=== PATIENT | male | born 1960 | race Hispanic/Latino ===

== ENCOUNTER 2017-04-06 06:10 | Day surgery (SDC) | payer OTHER ==
[2017-03-22 07:54] VITALS: BMI 24.3
[2017-04-06] MEDS ORDERED: Propofol 10 mg/ml Inj (20 ML) ONE (07:53)
[2017-04-06] MEDS ORDERED: Midazolam 2 MG/2 ML VIAL ONE (07:54)
[2017-04-06] MEDS ORDERED: cefTRIAXone (Rocephin) 1 gm Inj ONE (08:07)
[2017-04-06] MEDS ORDERED: Morphine 2 mg/ml ISec IVP PRN (08:13)
[2017-04-06] MEDS ORDERED: Lactated Ringer's 1,000 ML IV SCH (08:15)
[2017-04-06] MEDS ORDERED: ePHEDrine 50 mg/ml Inj ONE (08:25)
[2017-04-06] MEDS ORDERED: Bacitracin Ointment 30 GM TUBE ONE (09:04)
[2017-04-06] MEDS ORDERED: Oxycodone/Acetaminophen 5/325 mg Tab ONE (09:46)
[2017-04-06] MEDS ORDERED: Oxycodone/Acetaminophen 5/325 mg Tab PO PRN (09:51)
[2017-04-06 10:11] VITALS: RESP 20; TEMP 98
[2017-04-06 10:42] VITALS: BP 103/54; PULSE 46; O2SAT 100
--- NOTE | 2017-04-06 12:09 | OP ---
PROCEDURE DATE: 04/06/2017 PREOPERATIVE DIAGNOSIS: Left spermatocele. POSTOPERATIVE DIAGNOSIS: Left spermatocele. PROCEDURE: Left spermatocelectomy. SURGEON: Abelino Kwan MD TYPE OF ANESTHESIA: LMA. DESCRIPTION OF OPERATION: After adequate LMA anesthesia was given, the patient was placed supine, prepped and draped in the usual manner. An incision was made over the left hemiscrotum, carried down through the scrotal layers opening the tunica vaginalis. The testicle was extruded out of the opening along with the cord. There was large left spermatocele, about one-half times the size of the testicle. The spermatocele was carefully dissected off of the cord. When removed, the blood vessels to the cord, vas deferens were all intact with good color to the testicle. Any oozing vessels were clamped and tied with 4-0 chromic ties or with 4-0 chromic suture. The area was irrigated. There was no evidence of any bleeding whatsoever. The testicle was put back into left hemiscrotum. A quarter-inch Keyonna drain was brought out through a lower stab wound. Sponge and instruments were correct x2. The incision was then closed with a running locking 3-0 chromic for the cremasteric muscles and interrupted 3-0 chromic on the skin. Bacitracin was applied to the incision. A Kerlix pressure dressing with a jog strap was applied. He patient was awakened and brought to the recovery room in good condition. Abelino Kwan MD
== END 2017-04-06 11:00 | disposition home or self-care (01) ==
LOC: SDS 06:10
PROVIDERS: ATTEND Urology
DX: N43.40 Spermatocele of epididymis, unspecified (principal); I10 Essential (primary) hypertension; I73.9 Peripheral vascular disease, unspecified; E07.9 Disorder of thyroid, unspecified
CPT/HCPCS: 54840; 88304; J0696; J2001; J2250; J2270; J2405; J2704; J3010; J7120 ×2

== ENCOUNTER 2018-06-03 06:36 | Day surgery (SDC) | payer OTHER ==
[2017-12-31 10:35] VITALS: BMI 25.0
--- NOTE | 2018-05-31 22:30 | HP ---
REASON FOR ADMISSION: Left heart cath, possible angioplasty, abnormal stress test, rule out CAD. BRIEF CLINICAL HISTORY: This is a 57-year-old male with past medical history significant for hypertension, hyperlipidemia, coronary artery disease, history of a stent at [facility], history of peripheral arterial disease, history of a stent in the left external iliac, who is complaining of chest pain, shortness of breath and palpitation, so underwent a stress test and abnormal and patient was scheduled for elective cardiac cath and possible angioplasty. PAST MEDICAL HISTORY: Significant for hypertension, hyperlipidemia, coronary artery disease status post a stent in the past, history of peripheral arterial disease status post a stent in [place] in 2002. SOCIAL HISTORY: Denies smoking. Denies any history of alcohol abuse. CURRENT MEDICATIONS: The patient is taking multivitamin daily, lisinopril and hydrochlorothiazide combination 20/12.5 mg daily, levothyroxine 25 mcg daily, Plavix 75 mg daily, aspirin 81 mg daily, atorvastatin 20 mg daily. ALLERGIES: No known drug allergies. RECENT CARDIAC WORKUP: The patient had a stress test, myocardial perfusion scan on 12/31/2017 that shows probably abnormal myocardial perfusion study, partially reversible small apical defect suspicious ischemia, significant, most likely secondary to diaphragmatic attenuation, but reversible ischemia apical defect, ejection fraction 55%. The patient had also echocardiography on 12/31/2017 that shows mild mitral regurgitation, left ventricular function is within normal limits, bicuspid aortic valve, possibly there is mild aortic stenosis, moderate aortic regurgitation, mild tricuspid regurgitation, RV systolic pressure 41. REVIEW OF SYSTEMS: As per HPI. PHYSICAL EXAMINATION VITAL SIGNS: Height of the patient 5 feet 8 inches. Weight of the patient 181 pounds. Body mass index 30 kg/m2. Temperature afebrile, heart rate 60, blood pressure 140/70. HEENT: PERRLA. INTACT. NECK: Supple. No carotid bruit or thyromegaly. CHEST: Clear to auscultation. HEART: S1 and S2 are regular. ABDOMEN: Soft. EXTREMITIES: Clubbing, cyanosis negative. LABORATORY DATA: Blood workup pending. IMPRESSION: This is a 57-year-old male with past medical history significant for coronary artery disease status post a stent in the past, abnormal stress apical defect suspicious ischemia, hypothyroidism, peripheral arterial disease status post a stent in right iliac, ex-smoker, abnormal stress test, mild tricuspid regurgitation, mild mitral regurgitation, mild pulmonary hypertension, moderate aortic regurgitation, aortic sclerosis with mild stenosis, preserved left ventricular function, abnormal stress apical ischemia, rule out coronary artery disease. RECOMMENDATION: We will load with aspirin, Plavix. Follow the blood work available and if blood workup is within the normal limits, we will proceed for cardiac catheterization. Further recommendation after cardiac cath and we will follow with you. Thank you Dr. Chaudhary, for providing us the opportunity in taking care of the patient Venkata. Karoline Bowen MD cc: Edi Dixon Md
[2018-06-03 07:05] LABS: BASO # 0.04 K/mm3 (0.0-2.0); BASO % 0.4 % (0.0-3.0); EOS # 0.6 (0.0-0.7); EOS % 5.7 % (1.5-5.0); GRAN # 6.09 (1.4-6.5); GRAN % 55.6 % (50.0-68.0); HEMOGLOBIN 15.9 g/dL (14.0-18.0); LYMPH # 3.6 (1.2-3.4); LYMPH % 32.5 % (22.0-35.0); MEAN CELL VOLUME 89.9 fl (80.0-105.0); MEAN CORPUSCULAR HEMOGLOBIN 30.9 pg (25.0-35.0); MEAN CORPUSCULAR HGB CONC 34.3 g/dl (31.0-37.0); MEAN PLATELET VOLUME 10.4 fl (7.0-11.0); MONO # 0.6 (0.1-0.6); MONO % 5.8 % (1.0-6.0); RBC 5.15 10^6/uL (3.5-6.1); WHITE BLOOD COUNT 10.9 10^3/uL (4.5-11.0)
[2018-06-03 07:08] VITALS: RESP 18; TEMP 97.6
[2018-06-03 07:12] LABS: BLOOD UREA NITROGEN 25 mg/dL (7-21); CALCIUM 9.7 mg/dL (8.4-10.5); GFR NON-AFRICAN AMERICAN > 60; HDL CHOLESTEROL 60 mg/dL (29-60)
[2018-06-03 07:16] LABS: INR 0.94; PARTIAL THROMBOPLASTIN TIME 29.6 Seconds (25.1-36.5); PROTHROMBIN TIME 10.8 SECONDS (9.4-12.5)
[2018-06-03 07:23] LABS: LDL CHOLESTEROL 124 mg/dL (0-129)
[2018-06-03] MEDS ORDERED: Lidocaine 2% Inj (20ml) ONE (07:30)
[2018-06-03] MEDS ORDERED: Verapamil 2 ML ONE (07:31)
[2018-06-03] MEDS ORDERED: Phenylephrine 10 mg/ml Inj ONE (07:31)
[2018-06-03] MEDS ORDERED: Iohexol 350mgl/ml 50 ML ONE (07:32)
[2018-06-03] MEDS ORDERED: Iodixanol 320 MG/ML 100 ML BOTTLE IV ONE (07:32)
[2018-06-03] MEDS ORDERED: Heparin 2,000 ML IV ONE (07:32)
[2018-06-03] MEDS ORDERED: Nitroglycerin 50mg in D5W 50 MG/250 ML BOTTLE IV ONE (07:32)
[2018-06-03] MEDS ORDERED: Iodixanol 320 MG/ML 200 ML BOTTLE IV ONE (07:32)
[2018-06-03] MEDS ORDERED: Midazolam 2 MG/2 ML VIAL ONE (07:52)
[2018-06-03] MEDS ORDERED: Sodium Chloride 0.9% 1,000 ML IV SCH (08:45)
--- NOTE | 2018-06-03 09:12 | CPOSTOP ---
CARDIOVASCULAR LAB POSTPROCEDURE NOTE DATE: 06/03/2018 DICTATING PHYSICIAN: Dr. Gavi Bowen. STITCH RUBBER: Sammi Lew, [employer] service technician. TYPE OF ANESTHESIA: Moderate conscious sedation. Total dose given 1 mg of Versed and 50 of fentanyl. PRE-PROCEDURE DIAGNOSES: Unstable angina; abnormal stress test; history of coronary artery disease and history of stent in the past. PROCEDURE PERFORMED: Left heart catheterization. FINDINGS: Nonobstructive coronary artery disease. FINAL DIAGNOSIS: Nonobstructive coronary artery disease, preserved left ventricular function. POST PROCEDURE CONDITION: The post procedure patient condition is stable. VASCULAR ACCESS SITE: Left radial. CLOSURE DEVICE: TR band. TOTAL RADIATION DOSE: 3705.701280.56 milligray unit. TOTAL FLUORO TIME: 2.8 minutes. Karoline Bowen MD
[2018-06-03 10:48] VITALS: O2SAT 96
[2018-06-03] MEDS ORDERED: Bacitracin 500 Units/gm Oint Foilpak UD ONE (11:07)
[2018-06-03 11:33] VITALS: BP 120/59; PULSE 55
--- NOTE | 2018-06-03 15:49 | CARD ---
APPROVED REPORT Date of service: 06/03/2018 Procedure(s) performed: Left Heart Catheterization HISTORY The patient is a 57 year-old male with a history of : previous MS (> 7 days), most recent EF: 55%. (EF Method: RADIONUCLIDE), peripheral vascular disease, diabetes mellitus with diet treatment , tobacco history() : The patient is a former smoker , previous PCI (The PCI date was 07/09/2002), hypertension , Had an abnormal stress test on 12/31/2017, showed apical ischemia. INDICATION The indication(s) include : positive stress test. CASE TECHNIQUE The patient was brought electively to the Cardiac Catheterization Laboratory in a fasting state and was prepped and draped in a sterile manner. The left wrist was infiltrated with 2% Lidocaine subcutaneous anesthesia. A 6FR GLIDESHEATH ACCESS KIT sheath was inserted into the left radial artery without difficulty. Coronary angiography was performed using coronary diagnostic catheters. The left coronary system was accessed and visualized with a Diagnostic ,5F JL 4 CATH DXT 100 CM catheter. The right coronary system was accessed and visualized with a Diagnostic ,5F JR 4 CATH DXT 100 CM catheter. The left ventricle was accessed and visualized with a 5F PIGTAIL 145 CATH DXT 110 CM catheter. Left ventricular/Aortic Valve gradient assessed on pullback. Left ventriculogram was performed in [place] projection. Closure device was deployed with a Fr TR Band (Large) without any complications. The patient tolerated the procedure well and there were no complications associated with the procedure. Vessel Analysis The patient's coronary anatomy is right dominant. The left main coronary artery is a medium size vessel with intimal irregularities and without significant stenosis. The left main bifurcates to the left anterior descending and circumflex. The left anterior descending artery is a medium size vessel with diffuse calcification noted throughout this vessel and without significant stenosis. Patent stent in Mid LAD There is a 30% stenosis in the proximal segment. The first diagonal branch is a medium size vessel with diffuse calcification noted throughout this vessel and without significant stenosis. The second diagonal branch is a small size vessel with diffuse calcification noted throughout this vessel and without significant stenosis. The circumflex artery is a medium size vessel with diffuse calcification noted throughout this vessel and without significant stenosis. The first obtuse marginal branch is a large size vessel with diffuse calcification noted throughout this vessel and without significant stenosis. The second obtuse marginal branch is a small size vessel with diffuse calcification noted throughout this vessel and with significant stenosis. small vessel less than 1.5 mm in diameter There is a 60-70% stenosis in the very distal segment diffusely diseased, but no focal flow limiting stenosis. The right coronary artery is a medium size vessel with diffuse calcification noted throughout this vessel and without significant stenosis. The right posterior descending artery is a medium size vessel with diffuse calcification noted throughout this vessel and without significant stenosis. Left Ventricle The left ventricle is normal in size with normal contractility. There was no cardiomyopathy. The left ventricular ejection fraction is estimated to be 55%. The left ventricular end diastolic pressure is 8-10 mmHg. Conclusion Non obstructive CAD limited to distal OM2 Diffusely diseased like a thread 60-70%, small calibre vessel, less than 1.5 mm in diameter, but no flow obst. stenosis. Major epicardial coronaries are ok, with patent stent in Mid LAD. Preserved LV Fx. EF-555, EDP-8-10 mmof Hg. Recommendations Aggressive Medical TherapyCardiac Risk Reduction Program CC; Raj allred/ Jet
== END 2018-06-03 13:00 | disposition home or self-care (01) ==
LOC: CATH 06:36
PROVIDERS: ATTEND Internal Medicine Cardiovascular Disease
DX: I25.110 Atherosclerotic heart disease of native coronary artery with unstable angina pectoris (principal); R06.02 Shortness of breath; R94.39 Abnormal result of other cardiovascular function study; E11.51 Type 2 diabetes mellitus with diabetic peripheral angiopathy without gangrene; I10 Essential (primary) hypertension; I25.2 Old myocardial infarction; Z87.891 Personal history of nicotine dependence; Z95.5 Presence of coronary angioplasty implant and graft; E78.5 Hyperlipidemia, unspecified; I08.3 Combined rheumatic disorders of mitral, aortic and tricuspid valves; E03.9 Hypothyroidism, unspecified; I27.20 Pulmonary hypertension, unspecified
CPT/HCPCS: 36415; 80048; 80061; 85025; 85610; 85730; 86850; 86900; 93458; 99152; C1769; J1644 ×2; J2250; J3010; J7030; Q9966; Q9967